=== PATIENT | female | born 1980 | race Caucasian/White ===

== ENCOUNTER 2019-03-30 16:48 | Emergency (ER) | payer OTHER ==
[~2019-03-30] VITALS: Ht 154.9 cm; Wt 50.0 kg
[~2019-03-30 16:48] MED LIST: HYDR-4383 PO; NAPR-56 PO
[2019-03-30 17:14] VITALS: BP 95/54
--- NOTE | 2019-03-30 17:57 | NUR ---
PT NEEDS SPLINT RE WRAPPED DENIES ANY INCREASE IN PAIN.
== END 2019-03-30 19:02 | disposition home or self-care (01) ==
LOC: ER 16:48
DX: S90.31XA Contusion of right foot, initial encounter (principal); Z88.8 Allergy status to other drugs, medicaments and biological substances; Z79.899 Other long term (current) drug therapy; W10.8XXA Fall (on) (from) other stairs and steps, initial encounter; Y93.89 Activity, other specified; Y92.89 Other specified places as the place of occurrence of the external cause; Y99.8 Other external cause status
CPT/HCPCS: 73630; 99283